=== PATIENT | female | born 1965 | race Caucasian/White ===

== ENCOUNTER 2017-03-21 14:13 | Emergency (ER) | payer MEDICAID ==
[~2017-03-21] VITALS: Ht 172.7 cm; Wt 80.0 kg
[2017-03-21 14:25] VITALS: BP 130/90
[2017-03-21] MEDS ORDERED: LORazepam 1MG TABLET PO ONE (14:30)
[2017-03-21] MEDS ORDERED: QUET100T4 PO (14:34)
[2017-03-21 14:51] LABS: HEMATOCRIT 40.4 % (34.6-47.8); HEMOGLOBIN 13.6 g/dL (11.7-16.4); WHITE BLOOD COUNT 6.5 x10^3/uL (3.4-10)
[2017-03-21 15:03] LABS: ASPARTATE AMINO TRANSFERASE 10 U/L (15-37); BLOOD UREA NITROGEN 25 mg/dL (7-18)
[2017-03-21 15:07] LABS: ACETAMINOPHEN < 2 mcg/mL (10-30)
[2017-03-21] MEDS ORDERED: ACETAMINOPHEN 325 MG TABLET ONE (18:23)
[2017-03-21] MEDS ORDERED: LORazepam 1MG TABLET ONE (18:23)
[2017-03-21] MEDS ORDERED: ACETAMINOPHEN 325 MG TABLET PO ONE (18:30)
== END 2017-03-21 18:44 | disposition home or self-care (01) ==
LOC: ED 18:01
DX: F41.1 Generalized anxiety disorder (principal); F43.0 Acute stress reaction
CPT/HCPCS: 36415; 80053; 80307; 80329; 85025; 99284; G0480

== ENCOUNTER → 2018-03-15 | Outpatient (CLI) | payer MEDICAID ==
[~2018-03-15] MED LIST: QUET100T4 PO
== END | disposition home or self-care (01) ==
LOC: CFH 15:46
PROVIDERS: ATTEND Orthopaedic Surgery
DX: M79.604 Pain in right leg (principal); R60.9 Edema, unspecified